=== PATIENT | female | born 1985 | race Caucasian/White ===

== ENCOUNTER 2025-06-24 17:17 | Outpatient (CLI) | payer OTHER, SELFPAY | END 2025-06-24 17:18 | disposition home or self-care (01) | LOC: AMB 06-29 14:56 | PROVIDERS: Visit Provider Emergency Medicine Emergency Medical Services | DX: R10.32 Left lower quadrant pain (principal) | CPT/HCPCS: A0425; A0433 ==

== ENCOUNTER 2025-06-24 17:53 | Emergency (ER) | payer SELFPAY ==
[2025-06-24 18:00] VITALS: BP 114/90; PULSE 134; RESP 20; TEMP 36.8; O2SAT 99
--- NOTE | 2025-06-24 18:22 | ED_ITS ---
HPI - Abdominal Pain General Chief Complaint: Abdominal Pain Stated Complaint: L abd. pain Time Seen by Provider: 06/24/25 18:15 History of Present Illness HPI narrative: This 40-year-old female comes in by ambulance reporting sudden onset of left lower abdominal pain. She was driving her vehicle when she had sudden severe pain that is remained constant since then. She does report a history of ovarian cysts and states that she has had pain like this in the past. She also states that she has had ovarian torsion and did have a surgery but reports that her ovaries are both yet in place and functional. Review of Systems Status of ROS Reports: 10 or more systems reviewed and unremarkable except as noted in History and below Narrative Constitutional: No fevers, no weight gain or loss. Eyes: No discharge. No vision changes. HENT: No congestion, no sore throat, no ear pain. Cardiovascular: No chest pain, no palpitations. Respiratory: No shortness of breath, no wheezes, no cough. Gastrointestinal: No diarrhea. She reports left lower abdominal pain with associated nausea. Genitourinary: No dysuria, no hematuria. Musculoskeletal: Normal range of motion. Skin: No rashes, no pruritis. Neurological: No dizziness, weakness, sensory change, speech change. Endo/Heme/Allergies: No bruising or bleeding. No polydipsia. Pysch: no suicidality, no anxiety, no insomnia. All other systems reviewed and are negative. Exam Narrative: Exam Narrative: Constitutional: Well-developed, well-nourished . HEENT: Normocephalic, atraumatic. Neck: Normal range of motion. Nontender. Supple. Heart: Regular. No murmurs. Normal rate. Intact distal pulses. Lungs: Clear to auscultation. No chest discomfort. No wheezes, rhonchi, or rales. Abdomen: Normal bowel sounds. Diffuse tenderness in the left lower abdomen. No rebound tenderness. Genitalia: Deferred. Back: No midline tenderness. Normal range of motion. Extremities: Normal range of motion. No injury. Skin: Intact. No rash. Warm. No erythema or pallor. Neurologic: No altered sensation. No weakness. Alert and oriented. Psychiatric: No suicidality. No anxiety or depression. No insomnia. Nursing notes and vitals signs are reviewed. Const: Vital Signs, click to edit/add: Vital Signs - 24 hr 06/24/25 18:00 Temperature 98.3 F Pulse Rate [Pulse Oximeter] 134 H Respiratory Rate 20 Blood Pressure [Ri ght Upper Arm] 114/90 H Pulse Oximetry 99 Oxygen Delivery Me thod Room Air Course Vital Signs Vital signs: Initial Vital Signs Temperature 98.3 F 06/24/25 18:00 Temperature Source Temporal Artery Scan 06/24/25 18:00 Pulse Rate 134 H 06/24/25 18:00 Respiratory Rate 20 06/24/25 18:00 Blood Pressure 114/90 H 06/24/25 18:00 Blood Pressure Mean 98 06/24/25 18:00 Pulse Oximetry 99 06/24/25 18:00 Oxygen Delivery Method Room Air 06/24/25 18:00 Vital Signs Temperature 98.3 F 06/24/25 18:00 Pulse Rate 134 H 06/24/25 18:00 Respiratory Rate 20 06/24/25 18:00 Blood Pressure 114/90 H 06/24/25 18:00 Pulse Oximetry 99 06/24/25 18:00 Oxygen Delivery Method Room Air 06/24/25 18:00 Temperature 98.3 F 06/24/25 18:00 Pulse Rate 134 H 06/24/25 18:00 Respiratory Rate 20 06/24/25 18:00 Blood Pressure 114/90 H 06/24/25 18:00 Pulse Oximetry 99 06/24/25 18:00 Oxygen Delivery Method Room Air 06/24/25 18:00 Medications Administered Medications: Generic Name Dose Route Start Last Admin Trade Name Freq PRN Reason Stop Dose Admin Hydromorphone HCl 0.5 mg 06/24/25 18:20 06/24/25 18:51 Hydromorphone 0.5 Mg/0.5 Ml Inj IVP 06/24/25 18:21 0.5 mg ONCE ONE Administration Ondansetron HCl 4 mg 06/24/25 18:20 06/24/25 18:51 Ondansetron 2 Mg/Ml Inj IVP 06/24/25 18:21 4 mg ONCE ONE Administration MDM - Abdominal Pain MDM Narrative Medical decision making narrative: This patient comes in with sudden onset of left lower abdominal pain. This is typical of a ruptured ovarian cyst. She has says that she has had symptoms like this in the past. Her exam and vital signs are reassuring. I did discuss ultrasound and CT imaging options and the patient declined this for now. She simply wants to get back on the road hoping to get to [place] this evening. She did receive an IV placed by ambulance personnel. I did administer Dilaudid 0.5 mg and this is brought sufficient relief to her symptoms. Discharge Plan Discharge Clinical Impression: Abdominal pain Patient Disposition: Home, Self-Care Condition: Improved Additional Instructions: Use [id number] medicines as needed and directed. Follow up with MD or return if symptoms are persistent or worsening. Stand Alone Forms: Active Endpoints Info Instructions
[2025-06-24] MEDS: ONDANSETRON 2 MG/ML inj 4 MG IVP (18:51)
== END 2025-06-24 19:28 | disposition home or self-care (01) ==
LOC: ED 19:05
PROVIDERS: Emergency Provider Emergency Medicine Emergency Medical Services
DX: R10.32 Left lower quadrant pain (principal)
CPT/HCPCS: 96374; 96375; 99283; 99284; J1171; J2405